=== PATIENT | female | born 1990 | race Caucasian/White ===

== ENCOUNTER 2022-05-01 11:50 | Emergency (ER) | payer BC ==
[2022-05-16 08:23] LABS: CHLORIDE,CL 102 mmol/L (98-115); ESTIMATED GFR 123 mL/min (>=60); SODIUM,NA 137 mmol/L (136-145)
== END 2022-05-01 13:20 | disposition home or self-care (01) ==
LOC: KA.ED 11:50
DX: R07.89 Other chest pain (principal); R00.0 Tachycardia, unspecified
CPT/HCPCS: 36415; 71046; 80053; 84484; 85025; 85379; 93005; 93010; 96374; 99285; 99285-25